=== PATIENT | male | born 1960 | race Caucasian/White ===

== ENCOUNTER 2017-07-16 17:02 | Observation (INO) | payer BC ==
[2017-07-16] MEDS ORDERED: ASPIRIN 81 MG TABLET, CHEWABLE PO ONE (17:27)
--- NOTE | 2017-07-16 17:28 | ER Document Report ---
ED Medical Screen (RME) - General Chief Complaint: Chest Pain Stated Complaint: CHEST PAIN Time Seen by Provider: 07/16/17 17:27 TRAVEL OUTSIDE OF THE [place] IN LAST 30 DAYS: No - HPI Notes: 07/16/17 17:28 Right-sided chest pain ongoing for 2 weeks. Reading Coach is Dr. Hernandez in [place]. Past Medical History Renal/ Medical History: Denies: Hx Peritoneal Dialysis Review of Systems - Review of Systems Cardiovascular: Chest pain Physical Exam - Vital signs Vitals: Temp Pulse Resp BP Pulse Ox 97.9 F 71 20 166/96 H 98 07/16/17 17:09 07/16/17 17:09 07/16/17 17:09 07/16/17 17:09 07/16/17 17:09 - Respiratory Respiratory status: No respiratory distress Chest status: Nontender Breath sounds: Normal Chest palpation: Normal Course - Vital Signs Vital signs: Temp Pulse Resp BP Pulse Ox 97.9 F 71 20 166/96 H 98 07/16/17 17:09 07/16/17 17:09 07/16/17 17:09 07/16/17 17:09 07/16/17 17:09
[2017-07-16 17:57] LABS: ABSOLUTE EOSINOPHILS # (AUTO) 0.2 10^3/uL (0.0-0.6); ABSOLUTE LYMPHOCYTES (AUTO) 1.5 10^3/uL (0.5-4.7); ABSOLUTE MONOCYTES (AUTO) 0.5 10^3/uL (0.1-1.4); ABSOLUTE NEUT (AUTO) 4.6 10^3/uL (1.7-8.2); BASOPHILS % (AUTO) 0.4 % (0-2); EOSINOPHILS % (AUTO) 2.5 % (0-6); HEMATOCRIT 42.6 % (37.9-51.0); HEMOGLOBIN 14.2 g/dL (13.5-17.0); MEAN CORPUSCULAR HEMOGLOBIN 32.6 pg (27.0-33.4); MEAN CORPUSCULAR HGB CONC 33.4 g/dL (32.0-36.0); MEAN CORPUSCULAR VOLUME 98 fl (80-97); RED BLOOD COUNT 4.36 10^6/uL (4.35-5.55); RED CELL DISTRIBUTION WIDTH 13.2 % (11.5-14.0); SEGMENTED NEUTROPHILS % (AUTO) 68.1 % (42-78); WHITE BLOOD COUNT 6.7 10^3/uL (4.0-10.5)
--- NOTE | 2017-07-16 18:03 | RADIOLOGY REPORT (SQ) ---
EXAM DESCRIPTION: CHEST PA/LAT COMPLETED DATE/TIME: 07/16/2017 5:49 pm REASON FOR STUDY: cp COMPARISON: None. EXAM PARAMETERS: NUMBER OF VIEWS: two views TECHNIQUE: Digital Frontal and Lateral radiographic views of the chest acquired. RADIATION DOSE: NA LIMITATIONS: none FINDINGS: LUNGS AND PLEURA: No opacities, masses or pneumothorax. No pleural effusion. MEDIASTINUM AND HILAR STRUCTURES: No masses or contour abnormalities. HEART AND VASCULAR STRUCTURES: Heart normal size. No evidence for failure. BONES: No acute findings. HARDWARE: None in the chest. OTHER: No other significant finding. IMPRESSION: NO SIGNIFICANT RADIOGRAPHIC FINDING IN THE CHEST. TECHNICAL DOCUMENTATION: JOB ID: [id number] [employer] ([place])- All Rights Reserved
[2017-07-16 18:18] LABS: ALANINE AMINOTRANSFERASE 32 U/L (21-72); ALBUMIN 3.9 g/dL (3.5-5.0); ALKALINE PHOSPHATASE 89 U/L (38-126); ANION GAP 11 (5-19); ASPARTATE AMINO TRANSFERASE 27 U/L (17-59); BILIRUBIN,DIRECT 0.4 mg/dL (0.0-0.4); BILIRUBIN,TOTAL 0.4 mg/dL (0.2-1.3); BLOOD UREA NITROGEN 10 mg/dL (7-20); CALCIUM 9.2 mg/dL (8.4-10.2); CARBON DIOXIDE 27 mmol/L (22-30); CHLORIDE 105 mmol/L (98-107); CREATINE KINASE 38 U/L (55-170); CREATININE RESULT 0.85 mg/dL (0.52-1.25); GLUCOSE 85 mg/dL (75-110); POTASSIUM 4.6 mmol/L (3.6-5.0); SODIUM 142.7 mmol/L (137-145); TOTAL PROTEIN 6.6 g/dL (6.3-8.2)
[2017-07-16 18:29] LABS: CREATINE KINASE MB 0.61 ng/mL (<4.55)
[2017-07-16 18:31] LABS: TROPONIN I < 0.012 ng/mL
[2017-07-16 19:18] LABS: PROTHROMBIN TIME 12.4 SEC (11.4-15.4)
--- NOTE | 2017-07-16 19:34 | ER Document Report ---
ED General - General Chief Complaint: Chest Pain Stated Complaint: CHEST PAIN Time Seen by Provider: 07/16/17 17:27 Notes: Patient is a 57-year-old male with a past medical history of known coronary artery disease who presents with 2 weeks of intermittent right-sided chest pressure radiating into his right arm with associated diaphoresis. Patient states that these episodes do come on abruptly and can occur with exertion or at rest. The pain is described as a constant, pressure-like sensation in the right chest with an associated numbness, heaviness of the right upper extremity. States this does not feel as severe as when he has had MIs in the past. His pain is resolved when he takes nitroglycerin. 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 His last provocative test was in 2009 and his last cardiac catheterization was in 2008. He is chest pain-free at this time. He denies any associated shortness of breath, pleuritic pain, or abdominal pain. TRAVEL OUTSIDE OF THE [place] IN LAST 30 DAYS: No - Related Data Allergies/Adverse Reactions: Penicillins Allergy (Verified 07/16/17 17:30) statins Allergy (Uncoded 07/16/17 17:30) Home Medications: Current Home Medications Acetaminophen/Diphenhydramine [Tylenol Pm Ex-Strength Caplet] 1 each PO QHS 12/01 [History] Clopidogrel Bisulfate [Plavix 75 mg Tablet] 75 mg PO DAILY 07/16/17 [History] Folic Acid/Multivit-Minerals [One-A-Day Men Vitacraves Gummy] 200 mcg PO DAILY 07/16/17 [History] Isosorbide Mononitrate [Isosorbide Mononitrate ER] 30 mg PO DAILY 07/16/17 [ History] Loratadine [Claritin 10 mg Tablet] 10 mg PO DAILY 07/16/17 [History] Nitroglycerin [Nitrostat 0.4 mg (1/150 Gr) Tabs 25/Bottle] 1 tab SL Q5MP PRN 12/01 [History] Omeprazole 40 mg PO BID 07/16/17 [History] Past Medical History - General Information source: Patient - Social History Smoking Status: Never Smoker Chew tobacco use (# tins/day): No Frequency of alcohol use: Occasional Drug Abuse: None Lives with: Spouse/Significant other Family History: Reviewed & Not Pertinent Patient has suicidal ideation: No Patient has homicidal ideation: No - Past Medical History Cardiac Medical History: Reports: Hx Heart Attack, Hx Hypertension Renal/ Medical History: Denies: Hx Peritoneal Dialysis Past Surgical History: Reports: Hx Abdominal Surgery - gastric bypass, Hx Cardiac Catheterization - stent x4 Review of Systems - Review of Systems Notes: Constitutional: Negative for fever. HENT: Negative for sore throat. Eyes: Negative for visual changes. Cardiovascular: Positive for chest pain. Respiratory: Negative for shortness of breath. Gastrointestinal: Negative for abdominal pain, vomiting or diarrhea. Genitourinary: Negative for dysuria. Musculoskeletal: Negative for back pain. Skin: Negative for rash. Neurological: Negative for headaches, weakness or numbness. 10 point ROS negative except as marked above and in HPI. Physical Exam - Vital signs Vitals: Temp Pulse Resp BP Pulse Ox 97.9 F 71 20 166/96 H 98 07/16/17 17:09 07/16/17 17:09 07/16/17 17:09 07/16/17 17:09 07/16/17 17:09 Interpretation: Hypertensive Notes: PHYSICAL EXAMINATION: GENERAL: Well-appearing, well-nourished and in no acute distress. HEAD: Atraumatic, normocephalic. EYES: Pupils equal round and reactive to light, extraocular movements intact, sclera anicteric, conjunctiva are normal. ENT: nares patent, oropharynx clear without exudates. Moist mucous membranes. NECK: Normal range of motion, supple without lymphadenopathy LUNGS: Breath sounds clear to auscultation bilaterally and equal. No wheezes rales or rhonchi. HEART: Regular rate and rhythm without murmurs ABDOMEN: Soft, nontender, normoactive bowel sounds. No guarding, no rebound. No masses appreciated. EXTREMITIES: Normal range of motion, no pitting or edema. No cyanosis. NEUROLOGICAL: No focal neurological deficits. Moves all extremities spontaneously and on command. PSYCH: Normal mood, normal affect. SKIN: Warm, Dry, normal turgor, no rashes or lesions noted. Course - Re-evaluation Re-evalutation: 07/16/17 19:33 Patient presents with a clinical history that is worrisome for possible unstable angina. He is having recurrent right-sided chest pressure radiating to the right extremity with associated diaphoresis worrisome that this is cardiac in origin. Fortunately, his EKG here is without ischemic changes and his initial troponin is normal. He is chest pain-free at time of my assessment. Wells score is 0 and his clinical history is not consistent with an acute pulmonary embolus. Chest x-ray is clear without evidence of a pneumothorax or widened mediastinum and I do not suspect an acute aortic dissection. Patient is high risk, will require inpatient stress testing versus transfer for cardiac catheterization. I have discussed with Dr. Sher Santana who is requesting to speak to cardiology first to establish the most appropriate measure for this patient. 07/16/17 19:43 The child daycare worker on-call Dr. Miranda is agreeable to admit the patient and stress him here. At this time will discharge with return precautions and follow-up recommendations. Verbal discharge instructions given a the bedside and opportunity for questions given. Medication warnings reviewed. Patient is in agreement with this plan and has verbalized understanding of return precautions and the need for primary care follow-up in the next 24-72 hours. - Vital Signs Vital signs: Temp Pulse Resp BP Pulse Ox 98.3 F 53 L 18 166/105 H 95 07/16/17 22:58 07/17/17 02:53 07/16/17 22:58 07/16/17 22:58 07/16/17 22:58 - Laboratory Result Diagrams: 07/16/17 17:44 07/16/17 17:44 Laboratory results interpreted by me: 07/16/17 07/16/17 17:44 17:44 MCV 98 H Creatine Kinase 38 L - Diagnostic Test Radiology reviewed: Image reviewed, Reports reviewed Radiology results interpreted by me: 07/16/17 19:45 Chest x-ray: No acute infiltrate or pneumothorax - EKG Interpretation by Me Additional EKG results interpreted by me: 07/16/17 19:45 Normal sinus rhythm. Rate 71. No ST elevations or depressions. PACs present. QTC is 444. Discharge - Discharge Clinical Impression: Chest pain Qualifiers: Chest pain type: unspecified Qualified Code(s): R07.9 - Chest pain, unspecified Condition: Fair Disposition: ADMITTED OBSERVATION Admitting Provider: Isidra Santana Unit Admitted: Telemetry
[2017-07-16] MEDS ORDERED: NITROGLYCERIN 0.4 MG/TAB 25 TAB/BOTTLE SL PRN (19:45)
[2017-07-16] MEDS ORDERED: LACTULOSE SYRUP 20 GM/30 ML UDCUP PO ONE (20:15)
[2017-07-16] MEDS ORDERED: ISOSORBIDE MONONITRATE 30 MG TAB.ER.24H PO ONE (20:30)
[2017-07-16] MEDS ORDERED: CLOPIDOGREL BISULFATE 300 MG TABLET PO ONE (21:30)
[2017-07-16] MEDS ORDERED: ATORVASTATIN CALCIUM 80 MG TABLET PO SCH (22:00)
--- NOTE | 2017-07-16 22:05 | EKG REPORT ---
SEVERITY:- OTHERWISE NORMAL ECG - SINUS RHYTHM ATRIAL PREMATURE COMPLEX BORDERLINE LEFT AXIS DEVIATION : Confirmed by: Lang Miranda 16-Jul-2017 22:04:59
[2017-07-16] MEDS: LANSOPRAZOLE 30 MG TAB.RAP.DR PO SCH (22:12)
[2017-07-16] MEDS: METOPROLOL SUCCINATE 25 MG TAB.SR.24H PO SCH (22:13)
[2017-07-16] MEDS ORDERED: ENALAPRILAT DIHYDRATE INJ/PF 1.25 MG/1 ML SDV IV ONE (23:45)
[2017-07-17 00:19] LABS: TROPONIN I < 0.012 ng/mL
--- NOTE | 2017-07-17 05:32 | PDOC H&P ---
History of Present Illness Admission Date/PCP: 07/16/17 19:45 Patient complains of: Chest pain History of Present Illness: TODD ERAZO is a 57 year old male with a past medical history of coronary artery disease status post stent 4 approximately 11 years ago, morbid obesity status post gastric bypass and hypertension. Patient been in his usual state of health until approximately 2 weeks ago has noted intermittent episodes of dull 2 out of 5 retrosternal chest pain associated with diaphoresis, worsened with exertion alleviated by rest and nitroglycerin. His episodes of pain that become increasingly frequent and intense prompting him to seek evaluation emergency room. She denies any recent change of medication. In the emergency room his pain is present and completely resolved by IV Lopressor and Nitropaste. He is referred to the hospitalist for admission for an otherwise unremarkable workup. Past Medical History Cardiac Medical History: Reports: Myocardial Infarction, Hypertension Psychiatric Medical History: Denies: Depression Past Surgical History Past Surgical History: Reports: Cardiac Catheterization - stent x4, Gastric Bypass Surgery Social History Information Source: Patient Lives with: Spouse/Significant other Smoking Status: Never Smoker Frequency of Alcohol Use: None Hx Recreational Drug Use: No Drugs: None Hx Prescription Drug Abuse: No - Advance Directive Resuscitation Status: Full Code Family History Family History: CAD Parental Family History Reviewed: Yes Children Family History Reviewed: Yes Sibling(s) Family History Reviewed.: Yes Medication/Allergy Home Medications: Acetaminophen/Diphenhydramine [Tylenol Pm Ex-Strength Caplet] 1 each PO QHS 12/01 Clopidogrel Bisulfate [Plavix 75 mg Tablet] 75 mg PO DAILY 07/16/17 Folic Acid/Multivit-Minerals [One-A-Day Men Vitacraves Gummy] 200 mcg PO DAILY 07/16/17 Isosorbide Mononitrate [Isosorbide Mononitrate ER] 30 mg PO DAILY 07/16/17 Loratadine [Claritin 10 mg Tablet] 10 mg PO DAILY 07/16/17 Nitroglycerin [Nitrostat 0.4 mg (1/150 Gr) Tabs 25/Bottle] 1 tab SL Q5MP PRN 12/01 Omeprazole 40 mg PO BID 07/16/17 Allergies/Adverse Reactions: Penicillins Allergy (Verified 07/16/17 17:30) statins Allergy (Uncoded 07/16/17 17:30) Review of Systems Constitutional: ABSENT: chills, fever(s), headache(s), weight gain, weight loss Eyes: ABSENT: visual disturbances Ears: ABSENT: hearing changes Cardiovascular: ABSENT: chest pain, dyspnea on exertion, edema, orthropnea, palpitations Respiratory: ABSENT: cough, hemoptysis Gastrointestinal: ABSENT: abdominal pain, constipation, diarrhea, hematemesis, hematochezia, nausea, vomiting Genitourinary: ABSENT: dysuria, hematuria Musculoskeletal: ABSENT: joint swelling Integumentary: ABSENT: rash, wounds Neurological: ABSENT: abnormal gait, abnormal speech, confusion, dizziness, focal weakness, syncope Psychiatric: ABSENT: anxiety, depression, homidical ideation, suicidal ideation Endocrine: ABSENT: cold intolerance, heat intolerance, polydipsia, polyuria Hematologic/Lymphatic: ABSENT: easy bleeding, easy bruising Physical Exam Vital Signs: Temp Pulse Resp BP Pulse Ox 98.3 F 53 L 18 166/105 H 95 07/16/17 22:58 07/17/17 02:53 07/16/17 22:58 07/16/17 22:58 07/16/17 22:58 Intake & Output 07/15/17 07/16/17 07/17/17 11:59 11:59 11:59 Intake Total 300 Output Total 300 Balance 0 Weight 114.15 kg General appearance: PRESENT: no acute distress, well-developed, well-nourished Head exam: PRESENT: atraumatic, normocephalic Eye exam: PRESENT: conjunctiva pink, EOMI, PERRLA. ABSENT: scleral icterus Ear exam: PRESENT: normal external ear exam Mouth exam: PRESENT: moist, tongue midline Neck exam: ABSENT: carotid bruit, JVD, lymphadenopathy, thyromegaly Respiratory exam: PRESENT: clear to auscultation chandana. ABSENT: rales, rhonchi, wheezes Cardiovascular exam: PRESENT: RRR, systolic murmur. ABSENT: diastolic murmur, rubs Pulses: PRESENT: normal dorsalis pedis pul Vascular exam: PRESENT: normal capillary refill GI/Abdominal exam: PRESENT: normal bowel sounds, soft. ABSENT: distended, guarding, mass, organolmegaly, rebound, tenderness Rectal exam: PRESENT: deferred Extremities exam: PRESENT: full ROM. ABSENT: calf tenderness, clubbing, pedal edema Neurological exam: PRESENT: alert, awake, oriented to person, oriented to place , oriented to time, oriented to situation, CN II-XII grossly intact. ABSENT: motor sensory deficit Psychiatric exam: PRESENT: appropriate affect, normal mood. ABSENT: homicidal ideation, suicidal ideation Skin exam: PRESENT: dry, intact, warm. ABSENT: cyanosis, rash Results Laboratory Results: 07/16/17 23:42 CK-MB (CK-2) 0.50 Troponin I < 0.012 Impressions: Chest X-Ray 07/16/17 17:28 IMPRESSION: NO SIGNIFICANT RADIOGRAPHIC FINDING IN THE CHEST. Assessment & Plan - Diagnosis (1) Coronary artery disease Is this a current diagnosis for this admission?: Yes Plan: History of stent 4, current symptoms strongly suggest unstable angina, cardiology consulted (2) Hypertension Is this a current diagnosis for this admission?: Yes Plan: Patient intolerant of GRACIELA inhibitors secondary to cough and subsequent discontinuation. Nitroglycerin and beta-evie as needed (3) Chest pain Qualifiers: Chest pain type: unspecified Qualified Code(s): R07.9 - Chest pain, unspecified Is this a current diagnosis for this admission?: Yes Plan: Atypical chest pain suggestive of unstable angina serial cardiac enzymes, treadmill stress ordered. - Time Time Spent: 30 to 50 Minutes
[2017-07-17 06:11] LABS: CHOLESTEROL 181.52 mg/dL (0-200); CREATINE KINASE 29 U/L (55-170); Direct HDL 47 mg/dL (>40); TRIGLYCERIDES 181 mg/dL (<150)
[2017-07-17 06:22] LABS: CREATINE KINASE MB 0.49 ng/mL (<4.55); DIRECT LDL 118 mg/dL (<100); VLDL CHOLESTEROL 36.2 mg/dL (10-31)
[2017-07-17 06:23] LABS: TROPONIN I < 0.012 ng/mL
[2017-07-17] MEDS ORDERED: [UNRECOGNIZED DRUG - OTHER] PO SCH (10:00)
[2017-07-17] MEDS ORDERED: FOLIC ACID PO SCH (10:00)
[2017-07-17] MEDS ORDERED: CLOPIDOGREL BISULFATE 300 MG TABLET PO SCH (10:00)
[2017-07-17] MEDS ORDERED: ISOSORBIDE MONONITRATE 30 MG TAB.ER.24H PO SCH (10:00)
[2017-07-17] MEDS ORDERED: RAMIPRIL 2.5 MG CAPSULE PO SCH (10:00)
[2017-07-17] MEDS ORDERED: LORATADINE 10 MG TABLET PO SCH (10:00)
[2017-07-17] MEDS ORDERED: MULTIVIT MINERALS PO SCH (10:00)
[2017-07-17] MEDS ORDERED: DOCUSATE SODIUM 100 MG CAPSULE PO SCH (10:00)
[2017-07-17] MEDS ORDERED: MULTIVITAMIN TABLET PO SCH ×2 (10:00)
[2017-07-17] MEDS ORDERED: CLOPIDOGREL BISULFATE 75 MG TABLET PO SCH (10:00)
[2017-07-17] MEDS ORDERED: AMINOPHYLLINE INJ/PF 250 MG/10 ML SDV IV ONE (10:24)
[2017-07-17] MEDS ORDERED: ADENOSINE INJ 60 MG/20 ML VIAL IV ONE (10:24)
[2017-07-17] MEDS ORDERED: REGADENOSON INJ 0.4 MG/5 ML DISP.SYRIN IV ONE (10:26)
[2017-07-17] MEDS: METOPROLOL SUCCINATE 25 MG TAB.SR.24H PO SCH (10:42)
[2017-07-17] MEDS: LANSOPRAZOLE 30 MG TAB.RAP.DR PO SCH (10:43)
--- NOTE | 2017-07-17 11:55 | DRAGON STRESS TEST REPORT ---
INTRAVENOUS LEXISCAN CARDIOLITE STRESS TEST USING SINGLE PHOTON EMMISION COMPUTERIZED TOMOGRAPHIC. DATE OF PROCEDURE: July 17, 2017 INDICATION : Chest pain CARDIAC RISK FACTORS: Known CAD, hypertension, dyslipidemia, history of prior stents RESTING EKG: Sinus rhythm, no baseline ST-T wave changes are noted. STRESS EKG: No significant changes noted with LexiScan bolus REASON FOR TERMINATION: Protocol. PROCEDURE REPORT: Baseline heart rate 57 beats per minute with blood pressure of 143/88. Patient had no significant complaints. Heart rate at 2 minutes post bolus 85 with a blood pressure of 143/88. 3 minutes post bolus heart rate 77 with blood pressure of 145/85. No significant EKG changes were noted. Patient had no significant complaints during the procedure or postprocedure. Patient injected with Aminophyllin 75 mg at 3 minutes or later after Lexiscan bolus. CONCLUSIONS: Normal EKG and hemodynamic response to IV LexiScan. NUCLEAR DATA: At rest the patient was given 15.2 millicuries of technetium 99 sestamibi injected intravenously. As per protocol rest gated SPECT images were obtained. Subsequently the patient was given intravenous LexiScan at a dose of 0.4 mg in 5 mL intravenously, followed by flush with normal saline. Subsequently the stress dose of 46.3 millicuries of technetium 99 sestamibi was injected intravenously. As per protocol stress gated images were obtained. NUCLEAR INTERPRETATION: Both raw and processed data were used for interpretation. Visual, qualitative, computer-generated quantitative data was used. There was good myocardial uptake of technetium compound. Motion artifact and soft tissue attenuations were noted. Increased visceral uptake was noted. No definitive areas of transient perfusion defect noted. No definitive areas of fixed perfusion defect or scars noted. EKG gated imaging showed LV EF at 43 %, rest and stress gated EF similar visually. T. I D. ratio was 1.10. Lung heart ratio noted to be within normal limits 0.31. No significant extracardiac and abnormal radiotracer activities were noted. RV free wall uptake was noted to be mildly increased. IMPRESSION: Also refer to comments under nuclear interpretation. Also test results needs to be interpreted in the context of pretest probability. 1. There is no definitive scintigraphic evidence of LexiScan induced myocardial ischemia. 2. There is no definitive scintigraphic evidence of myocardial infarction/scar. 3. EKG gated imaging shows left ventricular ejection fraction of approximately 43 %. 4. Clinical correlation requested as occasionally single vessel disease or balanced ischemia could be missed. In approximately 10% of the cases Lexiscan may not cause adequate vasodilatory stress. RECOMMENDATIONS: Aggressive risk factor modification, medical therapy. Clinical correlation with echocardiogram derived ejection fraction. Inability to exercise by itself can lead to increased cardiovascular event risks. Consider cardiology consultation and or follow-up if clinically indicated. I AM AVAILABLE FOR CARDIOLOGY CONSULTATION AND FOLLOWUP IF REQUESTED BY PMD Lang Miranda M.D., [facility] [employer] motor vehicle field representative, Board certified in cardiovascular diseases, Nuclear cardiology, Echocardiography Cardiac CT and cardiac MRI Ph. [phone] [facility]
--- NOTE | 2017-07-17 12:09 | PDOC CONSULTATION ---
Consultation Consult Date: 07/16/17 Attending physician:: DAWIT DEE Consult reason:: chest pain History of Present Illness Admission Date/PCP: 07/16/17 19:45 Patient complains of: Chest pain History of Present Illness: TODD ERAZO is a 57 year old male with a past medical history of coronary artery disease status post stent 4 approximately 11 years ago, morbid obesity status post gastric bypass and hypertension. Patient been in his usual state of health until approximately 2 weeks ago has noted intermittent episodes of dull 2 out of 5 retrosternal chest pain associated with diaphoresis, worsened with exertion alleviated by rest and nitroglycerin. His episodes of pain that become increasingly frequent and intense prompting him to seek evaluation emergency room. Patient denies any recent change of medication. In the emergency room his pain is present and completely resolved by IV Lopressor and Nitropaste. Patient is subsequently admitted. His initial cardiac enzymes and EKG were unremarkable. I was asked to help with management of underlying CAD.. Past Medical History Cardiac Medical History: Reports: Myocardial Infarction, Hypertension Past Surgical History Past Surgical History: Reports: Cardiac Catheterization - stent x4 Social History Information Source: Patient Smoking Status: Never Smoker - Advance Directive Resuscitation Status: Full Code Surrogate healthcare decision maker:: Patient's significant other is surrogate decision maker. Family History Family History: CAD Parental Family History Reviewed: Yes Children Family History Reviewed: Yes Sibling(s) Family History Reviewed.: Yes - Patient's father had coronary artery disease. Medication/Allergy Home Medications: Acetaminophen/Diphenhydramine [Tylenol Pm Ex-Strength Caplet] 1 each PO QHS 12/01 Clopidogrel Bisulfate [Plavix 75 mg Tablet] 75 mg PO DAILY 07/16/17 Folic Acid/Multivit-Minerals [One-A-Day Men Vitacraves Gummy] 200 mcg PO DAILY 07/16/17 Isosorbide Mononitrate [Isosorbide Mononitrate ER] 30 mg PO DAILY 07/16/17 Loratadine [Claritin 10 mg Tablet] 10 mg PO DAILY 07/16/17 Nitroglycerin [Nitrostat 0.4 mg (1/150 Gr) Tabs 25/Bottle] 1 tab SL Q5MP PRN 12/01 Omeprazole 40 mg PO BID 07/16/17 Allergies/Adverse Reactions: Penicillins Allergy (Verified 07/16/17 17:30) statins Allergy (Uncoded 07/16/17 17:30) Review of Systems Review of Systems: Please see history of present illness and past medical history as wall. Constitutional: No fever or chills reported. Head : No recent chronic headaches, recent head injury. Eyes: No recent eye pain, diplopia, redness, discharge, acute visual changes. Ears: No recent chronic ear pain, acute hearing loss, ear discharge. Oral cavity: No recent ulcerations, bleeding, oral cavity discomfort. Neck: No recent acute neck pain reported. Hematologic: No recent easy bruising or bleeding or hematologic malignancy reported. Lymphatic: No recent lymphatic malignancy, chronic lymphadenopathy reported yet Cardiovascular system review: See history of present illness. Respiratory system review: No recent chronic cough, hemoptysis, blood clots in the lungs reported. Mild Shortness of breath on exertion Gastrointestinal system review: Negative for any recent acute or chronic abdominal pain, hematemesis, melena, recent change in bowel habits. Genitourinary system review: No recent acute or chronic hematuria, flank pain, UTI etc. reported. Skin system review: Negative for any recent abnormal bruising, no rash, no pruritus reported. Neurologic: No prior history of strokes, mini strokes, seizure disorder. Psychologic: No history of major psychosis or major depression reported. Musculoskeletal: Minor aches and pains reported. No acute joint swelling reported. Endocrine: No recent polyuria, polydipsia, recent heat or cold intolerance. Patient does give history of loud snoring. Physical Exam Vital Signs: Temp Pulse Resp BP Pulse Ox 97.9 F 71 15 164/108 H 99 07/16/17 17:09 07/16/17 17:09 07/16/17 19:11 07/16/17 19:11 07/16/17 19:11 Exam: GENERAL: well-nourished and in no acute distress. Alert and oriented x3 HEAD: Atraumatic, normocephalic. EYES: Pupils equal round and reactive to light, extraocular movements intact, sclera anicteric, conjunctiva are normal. ENT: TMs normal, nares patent, oropharynx clear without exudates. Moist mucous membranes. No oral ulcerations or bleeding gums noted NECK: supple without lymphadenopathy. Trachea is central. No cervical or axillary lymphadenopathy noted. Carotids are 2+, JVD WNL LUNGS: Respiration seems nonlabored, no significant accessory muscle action noted. Breath sounds clear to auscultation bilaterally and equal noted. No wheezes rales or rhonchi noted. No significant dullness noted on percussion. CHEST: Palpation of the chest wall shows right-sided chest wall tenderness. No other significant abnormalities noted. HEART: [place] [employer], No PSH, 1/6 CONCEPCION aortic area, 1/6 zuñiga systolic murmur mitral area, no rubs, no gallops. ABDOMEN: Soft, no significant tenderness appreciated, normoactive bowel sounds. No guarding, no rebound. No rigidity noted . No masses appreciated. EXTREMITIES: Pedal pulses are 1-2+, no calf tenderness noted. No clubbing or cyanosis.trace to 1+ pedal edema noted NEUROLOGICAL: Focused neurological exam showed no significant neurologic deficit. Normal speech, no focal weakness appreciated. PSYCH: Normal mood, normal affect. Judgment and insight within normal limits. SKIN: No significant ecchymosis, rash, ulcerations or signs of pruritus noted. MUSCULOSKELETAL EXAM: No significant joint swelling noted. Results EKG Comments: Sinus rhythm, no acute ST-T wave changes noted. Impressions: Chest X-Ray 07/16/17 17:28 IMPRESSION: NO SIGNIFICANT RADIOGRAPHIC FINDING IN THE CHEST. Assessment & Plan - Diagnosis (1) Chest pain Qualifiers: Chest pain type: unspecified Qualified Code(s): R07.9 - Chest pain, unspecified Is this a current diagnosis for this admission?: Yes (2) Coronary artery disease Is this a current diagnosis for this admission?: Yes (3) Hypertension Is this a current diagnosis for this admission?: Yes (4) Dyslipidemia Is this a current diagnosis for this admission?: Yes (5) Obesity (BMI 30.0-34.9) Is this a current diagnosis for this admission?: Yes (6) Sleep disorder Is this a current diagnosis for this admission?: Yes - Notes Notes: Chest pain: Patient has some typical and atypical features of chest pain. Cardiac enzymes so far has been negative. Electrocardiogram did not show any definitive ST segment changes. Multiple differential diagnoses exist in this patient. In descending order of probability this includes underlying coronary artery disease, gastroesophageal reflux, musculoskeletal pain, referred pain from elsewhere, anxiety panic disorder etc.Patient has significant cardiac risk factors, which indicates that there is a intermediate probability of chest discomfort coming from underlying CAD. Feel that it would need to be evaluated further. Discussed evaluation to assess this. In this regard risk benefits of nuclear stress test and other alternative processes were discussed in detail. The patient prefers to undergo nuclear stress test. The small risk of radiation , myocardial infarction, , cardiac arrhythmias, respiratory distress etc. were discussed. Patient understood the risks and gave informed consent. Nuclear stress test was therefore scheduled. Patient questions were answered. CAD: Patient has known history of CAD. Currently admitted with chest pain. Now chest pain-free. There were no EKG changes and enzymes are negative. Patient will benefit from a nuclear stress test. Patient to be treated with dualantiplatelet therapy, high potency statin therapy, beta blockers, angiotensin receptor evie, GRACIELA inhibitors et cetera. Patient advised against tobacco abuse in any form. Patient to follow healthy lifestyle, low- cholesterol diet et cetera. Hypertension: Reasonably well controlled. Blood pressure goal in this patient is 135/85 or less. This was discussed with the patient. Currently blood pressure under reasonable control. Better medication for this patient are GRACIELA inhibitor/ARB/beta evie etc. discussed side effects of uncontrolled hypertension and also severe hypotension. Hyperlipidemia: LDL goal is less than 70. Recommend statin therapy at least intermediate or high dose, of high potency status. Periodic lipid panel and liver panel is indicated. Patient to report any significant muscle discomfort or other side effects. Obesity: Discussed adverse effect of overweight/obesity on cardiovascular event rate, sleep apnea, diabetes and hypertension et cetera. Patient has been recommended weight loss. Patient advised in weight loss. In this regard portion control, substitution, calorie restriction and regular exercise plan discussed. Risk associated with being overweight and obesity discussed. This included both mechanical and metabolic complications. Sleep disorder breathing: Based on patient's symptoms, oropharyngeal exam, body habitus, comorbid diagnosis etc., there is high probability of underlying sleep apnea syndrome. Evaluation is recommended for sleep apnea as treatment of this condition if found is likely to benefit patient and reduce patient's future cardiovascular risk. - Time Time Spent: 30 to 50 Minutes - CODE STATUS was discussed, patient remains full code. Surrogate decision-maker unchanged. Multiple medical problems were addressed. More than 50% of the time spent coordinating care, discussing management plans with involved caregivers. Management plans discussed with involved personnels. Medical decision making was of moderate to high complexity , patient's has multiple comorbidities. Medications reviewed and adjusted accordingly: Yes
--- NOTE | 2017-07-17 14:01 | EKG REPORT ---
SEVERITY:- ABNORMAL ECG - SINUS RHYTHM NONSPECIFIC INTRAVENTRICULAR CONDUCTION DELAY : Confirmed by: Lang Miranda 17-Jul-2017 14:01:14
[2017-07-17 14:30] VITALS: BP 132/82
--- NOTE | 2017-07-17 15:09 | PDOC DISCHARGE SUMMARY ---
General - Admit/Disc Date/PCP Admission Date/Primary Care Provider: 07/16/17 19:45 Discharge Date: 07/17/17 - Discharge Diagnosis (1) GERD (gastroesophageal reflux disease) Is this a current diagnosis for this admission?: Yes (2) Chest pain Is this a current diagnosis for this admission?: Yes (3) Coronary artery disease Is this a current diagnosis for this admission?: Yes (4) Dyslipidemia Is this a current diagnosis for this admission?: Yes (5) Hypertension Is this a current diagnosis for this admission?: Yes (6) Obesity (BMI 30.0-34.9) Is this a current diagnosis for this admission?: Yes (7) Status post gastric bypass for obesity Is this a current diagnosis for this admission?: Yes - Additional Information Resuscitation Status: Full Code Discharge Diet: Cardiac, Diabetic Discharge Activity: Activity As Tolerated, Walk Frequently, Weigh Daily Home Medications: Acetaminophen/Diphenhydramine [Tylenol Pm Ex-Strength Caplet] 1 each PO QHS 12/01 Clopidogrel Bisulfate [Plavix 75 mg Tablet] 75 mg PO DAILY 07/16/17 Folic Acid/Multivit-Minerals [One-A-Day Men Vitacraves Gummy] 200 mcg PO DAILY 07/16/17 Isosorbide Mononitrate [Isosorbide Mononitrate ER] 30 mg PO DAILY 07/16/17 Loratadine [Claritin 10 mg Tablet] 10 mg PO DAILY 07/16/17 Nitroglycerin [Nitrostat 0.4 mg (1/150 Gr) Tabs 25/Bottle] 1 tab SL Q5MP PRN 12/01 Omeprazole 40 mg PO BID 07/16/17 Metoprolol Succinate [Toprol Xl 25 mg Tab.sr] 25 mg PO Q12 #60 tab.sr.24h Ramipril [Altace 2.5 mg Capsule] 2.5 mg PO DAILY #30 capsule 07/17/17 History of Present Illness History of Present Illness: See H&P for full HPI Hospital Course Hospital Course: TODD ERAZO is a 57 year old male with a past medical history of coronary artery disease status post stent 4 approximately 11 years ago, morbid obesity status post gastric bypass and hypertension. Patient been in his usual state of health until approximately 2 weeks ago has noted intermittent episodes of dull 2 out of 5 retrosternal chest pain associated with diaphoresis, worsened with exertion alleviated by rest and nitroglycerin. His episodes of pain that become increasingly frequent and intense prompting him to seek evaluation emergency room. She denies any recent change of medication. In the emergency room his pain is present and completely resolved by IV Lopressor and Nitropaste. He is referred to the hospitalist for admission for an otherwise unremarkable workup. Patient underwent serial cardiac enzymes which were negative 3. Patient underwent nuclear stress test which was also negative. Patient is advised to follow-up with his regular medical or surgical instrument maker for evaluation of his murmur and also if he has any ongoing pain for repeat cardiac catheterization. I discussed his care at great length with his who reports to me the patient is noncompliant with his gastric bypass diet and that he often eats to the point of vomiting. I discussed this with him and encouraged him to return to his regular diet and to return to his GI surgeon to discuss any difficulties that he may be having. I have also encouraged him to be compliant with his PPI. I have advised him to stop drinking alcohol as well. Physical Exam Vital Signs: Temp Pulse Resp BP Pulse Ox 98.2 F 69 20 132/82 H 97 07/17/17 14:30 07/17/17 14:30 07/17/17 14:30 07/17/17 14:30 07/17/17 14:30 Intake & Output 07/16/17 07/17/17 07/18/17 06:59 06:59 06:59 Intake Total 302 480 Output Total 300 350 Balance 2 130 Weight 114.15 kg Exam: General: Awake alert and oriented x3, no acute respiratory distress HEENT: AT/NC, PERRL, EOMI, oropharynx is moist, pink, no scleral icterus, no conjunctival injection Neck: No JVD, trachea midline Chest: Clear to auscultation bilaterally, no wheezes rhonchi or rales CV: Regular rate and rhythm, normal S1 and S2, no murmur, rub, or gallop Abdomen: Soft, nontender to palpation, nondistended, active bowel sounds; no rebound, rigidity, or guarding Extremities: No cyanosis, clubbing or edema Neuro: Cranial nerves II through XII are grossly intact without focal deficits; awake alert and oriented x3 Psych: Normal mood and affect Results Laboratory Results: 07/17/17 05:43 Triglycerides 181 H Cholesterol 181.52 LDL Cholesterol Direct 118 H VLDL Cholesterol 36.2 H HDL Cholesterol 47 07/16/17 07/17/17 07/17/17 23:42 05:43 05:43 Creatine Kinase 29 L CK-MB (CK-2) 0.50 0.49 Troponin I < 0.012 < 0.012 Impressions: Chest X-Ray 07/16/17 17:28 IMPRESSION: NO SIGNIFICANT RADIOGRAPHIC FINDING IN THE CHEST. Qualifiers PATEINT BEING DISCHARGED WITH ANY OF THE FOLLOWING DIAGNOSIS?: No Plan Time Spent: Greater than 30 Minutes
--- NOTE | 2017-07-17 22:51 | PDOC PROGRESS REPORT ---
Subjective Progress Note for:: 07/17/17 Subjective:: Patient seems to be doing better. There has been no recurrence of chest pains. Pt is denying any chest arm or neck discomfort. Patient denying any PND, orthopnea. Patient denied any sustained palpitations, dizziness, syncope, near syncope. Patient denying any fever chills. Patient denying any other significant discomfort. Patient's fianc interviewed. Patient does have history of very loud snoring and waking up gasping for breath. He is also very fatigued and tired. Patient has daytime sleepiness. Patient claims that he is under tremendous stress because of divorce proceeding and other complications with his previous . Patient is maintaining sinus rhythm. Review of systems: Rest review of systems negative. Medications: Medications have been reviewed. Nuclear stress test procedure was explained to the patient in detail. Risks benefits were discussed and informed consent was obtained. Alternatives were discussed. Patient informed that based on risk factors, physical exam, lab data findings and symptoms there is at least intermediate probability of underlying CAD. Nuclear stress test procedure was therefore scheduled. Physical Exam Vital Signs: Temp Pulse Resp BP Pulse Ox 98.2 F 69 20 132/82 H 97 07/17/17 14:30 07/17/17 14:30 07/17/17 14:30 07/17/17 14:30 07/17/17 14:30 Intake & Output 07/16/17 07/17/17 07/18/17 06:59 06:59 06:59 Intake Total 302 480 Output Total 300 350 Balance 2 130 Weight 114.15 kg Exam: GENERAL: well-nourished and in no acute distress. Alert and oriented x3 HEAD: Atraumatic, normocephalic. EYES: Pupils equal round and reactive to light, extraocular movements intact, sclera anicteric, conjunctiva are normal. ENT: TMs normal, nares patent, oropharynx clear without exudates. Moist mucous membranes. No oral ulcerations or bleeding gums noted NECK: supple without lymphadenopathy. Trachea is central. No cervical or axillary lymphadenopathy noted. Carotids are 2+, JVD WNL LUNGS: Respiration seems nonlabored, no significant accessory muscle action noted. Breath sounds clear to auscultation bilaterally and equal noted. No wheezes rales or rhonchi noted. No significant dullness noted on percussion. CHEST: Palpation of the chest wall shows right-sided upper chest wall tenderness. No other significant abnormalities noted. HEART: [place] [employer], No PSH, 1/6 CONCEPCION aortic area, 2/6 zuñiga systolic murmur mitral area, no rubs, no gallops. ABDOMEN: Soft, no significant tenderness appreciated, normoactive bowel sounds. No guarding, no rebound. No rigidity noted . No masses appreciated. EXTREMITIES: Pedal pulses are 1-2+, no calf tenderness noted. No clubbing or cyanosis.trace to 1+ pedal edema noted NEUROLOGICAL: Focused neurological exam showed no significant neurologic deficit. Normal speech, no focal weakness appreciated. PSYCH: Normal mood, normal affect. Judgment and insight within normal limits. SKIN: No significant ecchymosis, rash, ulcerations or signs of pruritus noted. MUSCULOSKELETAL EXAM: No significant joint swelling noted. Results Laboratory Results: 07/17/17 05:43 Triglycerides 181 H Cholesterol 181.52 LDL Cholesterol Direct 118 H VLDL Cholesterol 36.2 H HDL Cholesterol 47 07/16/17 07/17/17 07/17/17 23:42 05:43 05:43 Creatine Kinase 29 L CK-MB (CK-2) 0.50 0.49 Troponin I < 0.012 < 0.012 EKG Comments: Sinus rhythm no acute ST-T wave changes noted Impressions: Chest X-Ray 07/16/17 17:28 IMPRESSION: NO SIGNIFICANT RADIOGRAPHIC FINDING IN THE CHEST. Assessment & Plan - Diagnosis (1) Chest pain Qualifiers: Chest pain type: unspecified Qualified Code(s): R07.9 - Chest pain, unspecified Is this a current diagnosis for this admission?: Yes (2) Coronary artery disease Is this a current diagnosis for this admission?: Yes (3) Hypertension Is this a current diagnosis for this admission?: Yes (4) Dyslipidemia Is this a current diagnosis for this admission?: Yes (5) Obesity (BMI 30.0-34.9) Is this a current diagnosis for this admission?: Yes (6) Sleep disorder Is this a current diagnosis for this admission?: Yes (7) Cardiac murmur Is this a current diagnosis for this admission?: Yes (8) Status post gastric bypass for obesity Is this a current diagnosis for this admission?: Yes - Notes Notes: Chest pain: Cardiac cardiac enzymes have been negative. EKG is negative. Due to significant history of prior stent, patient underwent a nuclear stress test. Nuclear stress test was negative for any pharmacologic stress-induced ischemia. EKG gated EF was noted to be somewhat low. Patient advised to pursue a 2D echo as an outpatient. Coronary artery disease: Medical management is being optimized. Patient placed on statins, aspirin, Plavix, beta-evie and GRACIELA inhibitors. Hypertension: Reasonably well controlled. Blood pressure goal in this patient is 135/85 or less. This was discussed with the patient. Currently blood pressure under reasonable control. Better medication for this patient are GRACIELA inhibitor/ARB/beta evie etc. discussed side effects of uncontrolled hypertension and also severe hypotension. Hyperlipidemia: LDL goal is less than 70. Recommend statin therapy at least intermediate or high dose, of high potency status. Periodic lipid panel and liver panel is indicated. Patient to report any significant muscle discomfort or other side effects. Discussed adverse effect of overweight/obesity on cardiovascular event rate, sleep apnea, diabetes and hypertension et cetera. Patient has been recommended weight loss. Patient advised in weight loss. In this regard portion control, substitution, calorie restriction and regular exercise plan discussed. Patient informed that I would be happy to help for outpatient management of weight loss. Risk associated with being overweight and obesity discussed. This included both mechanical and metabolic complications. Sleep disorder breathing: Based on patient's symptoms, oropharyngeal exam, body habitus, comorbid diagnosis etc., there is high probability of underlying sleep apnea syndrome. Evaluation is recommended for sleep apnea as treatment of this condition if found is likely to benefit patient and reduce patient's future cardiovascular risk. Cardiac murmur template: Patient may have mitral regurgitation. He describes a history of chronic heart murmur. To be evaluated further with a 2D echocardiogram. Status post gastric bypass surgery for obesity: Patient may have nutritional deficiencies associated with it. Have discussed further evaluation and blood work. This can be done as an outpatient. - Time Time with patient: Greater than 35 minutes - Patient was seen multiple times. Total time exceeds 40 minutes. In the morning nuclear stress test procedure, risks benefits, alternatives were discussed. Patient seen during the stress test. Patient also seen after stress test when results were discussed with the patient in detail. Patient's questions were answered. Nuclear stress test results were discussed with the patient. Patient was informed that no definitive evidence of pharmacologic stress-induced ischemia noted. No definite fixed defects were noted. Patient informed that occasionally significant single vessel disease or balanced ischemia could be missed. However based on the current study results, would recommend aggressive risk factor modification and medical therapy. It may also be worthwhile to consider evaluation or empiric management of other causes of chest pain. Should no other cause be found and if persistent in having chest pain, then cardiac catheterization should be considered. Right now, recommendations are for aggressive risk factor modification and medical management. CODE STATUS was discussed, patient remains full code. Surrogate decision-maker patient's fianc . Multiple medical problems were addressed. More than 50% of the time spent coordinating care, discussing management plans with involved caregivers. Management plans discussed with involved personnels. Medical decision making was of moderate to high complexity, patient's has multiple comorbidities. Medications reviewed and adjusted accordingly: Yes
== END 2017-07-17 15:08 | disposition home or self-care (01) ==
LOC: ER 17:02 → EH 19:45 → UNDOADMOB 20:02 → EH 20:02 → 4N 21:50
PROVIDERS: ADMIT Internal Medicine; ATTEND Internal Medicine
DX: R07.89 Other chest pain (principal); K21.9 Gastro-esophageal reflux disease without esophagitis; R07.9 Chest pain, unspecified; I25.10 Atherosclerotic heart disease of native coronary artery without angina pectoris; E78.5 Hyperlipidemia, unspecified; I10 Essential (primary) hypertension; E66.01 Morbid (severe) obesity due to excess calories; Z68.34 Body mass index [BMI] 34.0-34.9, adult; G47.9 Sleep disorder, unspecified; R01.1 Cardiac murmur, unspecified; I25.2 Old myocardial infarction; Z98.84 Bariatric surgery status; Z79.02 Long term (current) use of antithrombotics/antiplatelets; Z79.899 Other long term (current) drug therapy; Z95.5 Presence of coronary angioplasty implant and graft; Z91.11 Patient's noncompliance with dietary regimen; Z82.49 Family history of ischemic heart disease and other diseases of the circulatory system; Z63.5 Disruption of family by separation and divorce
CPT/HCPCS: 93005 ×2; 99285; 36415 ×2; 82553 ×2; 82550 ×2; 85025; 85610; 80053; 84484 ×2; 80061; 93017; 71020; 78452; 93010 ×2; G0378 ×3; A9500; J2785; J3490 ×4; J0280; Q9969; J0153

== ENCOUNTER 2018-07-21 12:53 | Emergency (ER) | payer BC ==
--- NOTE | 2018-07-21 13:22 | ER Document Report ---
ED Medical Screen (RME) - General Chief Complaint: Chest Pain Stated Complaint: CHEST PAIN Time Seen by Provider: 07/21/18 13:19 Mode of Arrival: Wheelchair Information source: Patient Notes: Patient presents complaining of midsternal chest pain that has been constant for the past week but became sharp today which prompted his visit today. Patient does complain of shortness of breath with nausea and vomiting 2 episodes today. Patient denies any cough or fever. Patient does report some lower extremity edema. Patient does have a history of recent bypass surgery in April of this year. Patient took aspirin 325 mg at home today. hx: Bypass, stents, hypertension, hyperlipidemia I have greeted and performed a rapid initial assessment of this patient. A comprehensive ED assessment and evaluation of the patient, analysis of test results and completion of the medical decision making process will be conducted by additional ED providers. TRAVEL OUTSIDE OF THE [place] IN LAST 30 DAYS: No - Related Data Allergies/Adverse Reactions: lisinopril Allergy (Verified 07/21/18 13:18) Penicillins Allergy (Verified 07/21/18 12:54) statins Allergy (Uncoded 07/21/18 12:54) Past Medical History - Past Medical History Cardiac Medical History: Reports: Hx Heart Attack, Hx Hypertension Renal/ Medical History: Denies: Hx Peritoneal Dialysis Psychiatric Medical History: Denies: Hx Depression Past Surgical History: Reports: Hx Abdominal Surgery - gastric bypass, Hx Cardiac Catheterization - stent x4, Hx Gastric Bypass Surgery Physical Exam - Cardiovascular Rhythm: Regular Heart sounds: S1 appreciated, S2 appreciated - Extremities General lower extremity: Edema - Lower extremities
[2018-07-21 14:41] LABS: ABSOLUTE BASOPHILS # (AUTO) 0.1 10^3/uL (0.0-0.2); ABSOLUTE EOSINOPHILS # (AUTO) 0.1 10^3/uL (0.0-0.6); ABSOLUTE LYMPHOCYTES (AUTO) 1.4 10^3/uL (0.5-4.7); ABSOLUTE MONOCYTES (AUTO) 0.6 10^3/uL (0.1-1.4); ABSOLUTE NEUT (AUTO) 6.1 10^3/uL (1.7-8.2); BASOPHILS % (AUTO) 1.1 % (0-2); EOSINOPHILS % (AUTO) 0.7 % (0-6); HEMATOCRIT 36.8 % (37.9-51.0); HEMOGLOBIN 12.1 g/dL (13.5-17.0); LYMPHOCYTES % (AUTO) 16.9 % (13-45); MEAN CORPUSCULAR HGB CONC 32.8 g/dL (32.0-36.0); MEAN CORPUSCULAR VOLUME 88 fl (80-97); MONOCYTES % (AUTO) 7.2 % (3-13); PLATELET COUNT 334 10^3/uL (150-450); RED BLOOD COUNT 4.16 10^6/uL (4.35-5.55); SEGMENTED NEUTROPHILS % (AUTO) 74.1 % (42-78); TOTAL CELLS COUNTED % (AUTO) 100 %; WHITE BLOOD COUNT 8.2 10^3/uL (4.0-10.5)
[2018-07-21 14:59] LABS: INTERNATIONAL RATION (INR) 0.89; PROTHROMBIN TIME 12.5 SEC (11.4-15.4)
[2018-07-21 15:02] LABS: ALANINE AMINOTRANSFERASE 38 U/L (21-72); ALBUMIN 3.6 g/dL (3.5-5.0); ALKALINE PHOSPHATASE 101 U/L (38-126); ANION GAP 9 (5-19); ASPARTATE AMINO TRANSFERASE 41 U/L (17-59); BILIRUBIN,DIRECT 0.3 mg/dL (0.0-0.4); BILIRUBIN,TOTAL 0.3 mg/dL (0.2-1.3); BLOOD UREA NITROGEN 12 mg/dL (7-20); CALCIUM 8.6 mg/dL (8.4-10.2); CARBON DIOXIDE 27 mmol/L (22-30); CHLORIDE 105 mmol/L (98-107); CREATINE KINASE 40 U/L (55-170); GLUCOSE 80 mg/dL (75-110); POTASSIUM 4.9 mmol/L (3.6-5.0); SODIUM 141.1 mmol/L (137-145); TOTAL PROTEIN 6.9 g/dL (6.3-8.2)
--- NOTE | 2018-07-21 15:07 | RADIOLOGY REPORT (SQ) ---
EXAM DESCRIPTION: CHEST 2 VIEWS COMPLETED DATE/TIME: 07/21/2018 2:40 pm REASON FOR STUDY: sundar, adolfo COMPARISON: 07/16/2017 EXAM PARAMETERS: NUMBER OF VIEWS: two views TECHNIQUE: Digital Frontal and Lateral radiographic views of the chest acquired. RADIATION DOSE: NA LIMITATIONS: none FINDINGS: LUNGS AND PLEURA: No opacities, masses or pneumothorax. No pleural effusion. MEDIASTINUM AND HILAR STRUCTURES: No masses or contour abnormalities. HEART AND VASCULAR STRUCTURES: Heart normal size. No evidence for failure. BONES: No acute findings. HARDWARE: Sternotomy wires. Graft markers. OTHER: No other significant finding. IMPRESSION: NO ACUTE RADIOGRAPHIC FINDING IN THE CHEST. TECHNICAL DOCUMENTATION: JOB ID: [id number] [employer]- All Rights Reserved Reading location - IP/workstation name: [email or web address]
[2018-07-21 15:12] LABS: CREATINE KINASE MB 0.55 ng/mL (<4.55); NT PRO BNP 175 pg/mL (5-900)
[2018-07-21 15:15] LABS: TROPONIN I < 0.012 ng/mL
[2018-07-21] MEDS ORDERED: ASPIRIN 325 MG TABLET PO ONE (15:33)
--- NOTE | 2018-07-21 15:37 | ER Document Report ---
ED General - General Chief Complaint: Chest Pain Stated Complaint: CHEST PAIN Time Seen by Provider: 07/21/18 13:19 Mode of Arrival: Wheelchair TRAVEL OUTSIDE OF THE [place] IN LAST 30 DAYS: No - HPI Notes: 58-year-old male with a history of coronary artery disease and CABG at [place] in the end of April presents with chest pain for the past week. He states his CABG was complicated by pleural effusions requiring chest tube and staph infection. He has been having right-sided chest pain that is reproducible with palpation for the past week. He states when pain becomes severe he vomits. He denies any change with deep breath or movement. No exertional pain or pain with lying flat. He developed pain under his left breast today associated with diaphoresis , nausea, and shortness of breath. Also reports mild increased bilateral leg swelling. states that he is "losing his color." Denies fever, but had fevers a few weeks ago with possible C. difficile. Those symptoms have resolved. He is no longer on Plavix and did not take aspirin today. - Related Data Allergies/Adverse Reactions: lisinopril Allergy (Verified 07/21/18 13:18) Penicillins Allergy (Verified 07/21/18 12:54) statins Allergy (Uncoded 07/21/18 12:54) Past Medical History - General Information source: Patient - Social History Smoking Status: Never Smoker Frequency of alcohol use: weekly Drug Abuse: None Family History: CAD Patient has suicidal ideation: No Patient has homicidal ideation: No - Past Medical History Cardiac Medical History: Reports: Hx Heart Attack, Hx Hypertension Renal/ Medical History: Denies: Hx Peritoneal Dialysis Psychiatric Medical History: Denies: Hx Depression Past Surgical History: Reports: Hx Abdominal Surgery - gastric bypass, Hx Cardiac Catheterization - stent x4, Hx Cardiac Surgery - May 05 at [place], Hx Gastric Bypass Surgery Review of Systems - Review of Systems Notes: Constitutional: Negative for fever. HENT: Negative for sore throat. Eyes: Negative for visual changes. Cardiovascular: Positive for chest pain and peripheral edema Respiratory: Positive for shortness of breath. Negative for cough Gastrointestinal: Negative for abdominal pain, and diarrhea. Positive for nausea and vomiting Genitourinary: Negative for dysuria. Musculoskeletal: Negative for back pain. Skin: Negative for rash. Neurological: Negative for headaches, weakness or numbness. 10 point ROS negative except as marked above and in HPI. Physical Exam - Vital signs Vitals: Temp Pulse Resp BP 98.0 F 74 16 140/94 H 07/21/18 13:07 07/21/18 13:07 07/21/18 13:07 07/21/18 13:07 - Notes Notes: PHYSICAL EXAMINATION: GENERAL: Well-appearing, well-nourished and in no acute distress. HEAD: Atraumatic, normocephalic. EYES: Pupils equal round and reactive to light, extraocular movements intact, conjunctiva are normal. ENT: nares patent, oropharynx clear without exudates. Moist mucous membranes. NECK: Normal range of motion, supple without lymphadenopathy LUNGS: Breath sounds clear to auscultation bilaterally and equal. No wheezes rales or rhonchi. HEART: Regular rate and rhythm, mild right chest wall tenderness, systolic murmur appreciated ABDOMEN: Soft, nontender, normoactive bowel sounds. No guarding, no rebound. No masses appreciated. EXTREMITIES: Normal range of motion, 1+ pitting edema bilateral ankles and feet. No cyanosis. NEUROLOGICAL: Cranial nerves grossly intact. Normal speech, normal gait. Normal sensory and motor exams. PSYCH: Normal mood, normal affect. SKIN: Warm, Dry, normal turgor, no rashes or lesions noted. Course - Re-evaluation Re-evalutation: 07/21/18 19:[address] is negative pulmonary embolism but shows possible infected pneumatocele on the left. Had 2 chest tubes on left in May after CABG. Will dw CV surgery at [place] for management 07/21/18 19:[address] Morel, cardiology at [place] and accepted pt in transfer. No current fever or leukocytosis to suggest emergent need for antibiotics. Will likely need drainage under IR for further evaluation. pt states recent test for C dif was negative. - Vital Signs Vital signs: Temp Pulse Resp BP Pulse Ox 98.0 F 74 14 132/85 H 98 07/21/18 18:56 07/21/18 13:07 07/21/18 18:26 07/21/18 18:26 07/21/18 18:26 - Laboratory Result Diagrams: 07/21/18 14:20 07/21/18 14:20 Laboratory results interpreted by me: 09/06/18 09/06/18 09/06/18 14:20 14:20 14:20 RBC 4.16 L Hgb 12.1 L Hct 36.8 L RDW 17.0 H D-Dimer 1.18 H Creatine Kinase 40 L Discharge - Discharge Clinical Impression: Pneumatocele of lung Condition: Stable Disposition: [place] Referrals: HILTON LEWIS FNP [Primary Care Provider] - Follow up as needed
[2018-07-21] MEDS ORDERED: ONDANSETRON HCL INJ/PF 4 MG/2 ML SDV IV ONE (16:40)
--- NOTE | 2018-07-21 18:26 | RADIOLOGY REPORT (SQ) ---
EXAM DESCRIPTION: CTA CHEST COMPLETED DATE/TIME: 07/21/2018 6:12 pm REASON FOR STUDY: cp, sob, elevated d dimer COMPARISON: Chest x-ray 07/21/2018 TECHNIQUE: CT scan of the chest performed using helical scanning technique with dynamic intravenous contrast injection. Images reviewed with lung, soft tissue and bone windows. Reconstructed coronal and sagittal MPR images reviewed. Additional 3 dimensional post-processing performed to develop Maximal Intensity Projection images (TX P). All images stored on PACS. All CT scanners at this facility use dose modulation, iterative reconstruction, and/or weight based d osing when appropriate to reduce radiation dose to as low as reasonably achievable (ALARA). [facility]: Dose Right [facility]: CareDose [facility]: Dose Right [facility]: Teradose 4D [facility]: Ensighten CONTRAST TYPE AND DOSE: contrast/concentration: Isovue 350.00 mg/ml; Total Contrast Delivered: 82.0 ml; Total Saline Delivered: 90.0 ml Contrast bolus optimized for the pulmonary arteries. Not diagnostic for the aorta. RENAL FUNCTION: BUN 12 creatinine 0.8 RADIATION DOSE: CT Rad equipment meets quality standard of care and radiation dose reduction techniq ues were employed. CTDIvol: 24.8 - 27.8 mGy. DLP: 1025 mGy-cm. . LIMITATIONS: None. FINDINGS: LUNGS AND PLEURA: There is a 2 x 5 cm area in the posterior left lower lobe in the posteri or costophrenic sulcus that contains an air-fluid level. AORTA AND GREAT VESSELS: No aneurysm. Contrast bolus not optimized for the aorta. HEART: No pericardial effusion. Moderate to marked coronary artery calcifications. PULMONARY ARTERIES: No emboli visualized in the main pulmonary arteries or the segmental branches. HILAR AND MEDIASTINAL STRUCTURES: No identified masses or abnormal nodes. HARDWARE: Sternotomy wires. UPPER ABDOMEN: No significant findings. Limited exam. THYROID AND OTHER SOFT TISSUES: No masses. No adenopathy. BONES: No acute or significant finding. 3D MIPS: Confirm above findings. OTHER: No other significant finding. IMPRESSION: 1. There is no evidence of pulmonary emboli. 2. There is an air-fluid level in the posterior costophrenic sulcus on the left. Possible infected pneumatocoele. COMMENT: Quality ID # [id number]: Final reports with documentation of one or more dose reduction techniques (e.g., Automated exposure control, adjustment of the mA and/or kV according to patient size, use of iterative reconstruction technique) TECHNICAL DOCUMENTATION: JOB ID: [id number] [email or web address]- All Rights Reserved Reading location - IP/workstation name: [email or web address]
--- NOTE | 2018-07-21 18:42 | EKG REPORT ---
SEVERITY:- BORDERLINE ECG - SINUS RHYTHM BORDERLINE LEFT AXIS DEVIATION BORDERLINE T ABNORMALITIES, ANT-LAT LEADS : Confirmed by: Raj Oquendo MD 21-Jul-2018 18:42:08
[2018-07-21 20:29] VITALS: BP 135/76
== END 2018-07-21 20:30 | disposition short-term general hospital (02) ==
LOC: ER 12:53
DX: J98.4 Other disorders of lung (principal); R07.9 Chest pain, unspecified; R11.2 Nausea with vomiting, unspecified; R61 Generalized hyperhidrosis; R60.0 Localized edema; R06.02 Shortness of breath; I10 Essential (primary) hypertension; I25.2 Old myocardial infarction; I25.10 Atherosclerotic heart disease of native coronary artery without angina pectoris; Z95.1 Presence of aortocoronary bypass graft; Z88.8 Allergy status to other drugs, medicaments and biological substances; Z88.0 Allergy status to penicillin; Z98.84 Bariatric surgery status; Z95.5 Presence of coronary angioplasty implant and graft
CPT/HCPCS: 93005; 99285; 96374; 36415; 82553; 82550; 83735; 85025; 85610; 85730; 80053; 84484; 85379; 83880; 71046; 71275; 93010; J2405

== ENCOUNTER 2019-01-03 11:28 | Inpatient (IN) | payer BC ==
[2019-01-03] MEDS ORDERED: PANTOPRAZOLE SODIUM 40 MG VIAL IV ONE (12:01)
[2019-01-03] MEDS ORDERED: ONDANSETRON HCL INJ/PF 4 MG/2 ML SDV IV ONE (12:02)
[2019-01-03] MEDS ORDERED: RINGERS SOLUTION,LACTATED 1,000 ML IV ONE (12:04)
--- NOTE | 2019-01-03 12:04 | ER Document Report ---
ED Medical Screen (RME) - General Chief Complaint: Nausea/Vomiting Stated Complaint: VOMITING, BLOOD IN STOOL Time Seen by Provider: 01/03/19 11:48 Primary Care Provider: HILTON LEWIS FNP [Primary Care Provider] - Follow up as needed Mode of Arrival: Wheelchair Information source: Patient, Relative Notes: 58-year-old male with history of gastric bypass presents with complaints of hemoptysis and bloody stools that started yesterday. Patient reports multiple episodes of vomiting blood yesterday. He has not vomited any blood today but states that he filled the toilet bowl with blood just prior to arrival. Patient denies history of prior similar symptoms. He does admit to drinking 2-3 beers daily. No known history of varices. I have greeted and performed a rapid initial assessment of this patient. A comprehensive ED assessment and evaluation of the patient, analysis of test results and completion of medical decision making process we will be contacted by additional ED providers. PHYSICAL EXAMINATION: Vital signs reviewed GENERAL: Ill-appearing LUNGS: No respiratory distress Musculoskeletal: Normal range of motion NEUROLOGICAL: Normal speech, PSYCH: Normal mood, normal affect. SKIN: Warm, Dry, normal turgor, no rashes or lesions noted. TRAVEL OUTSIDE OF THE [place] IN LAST 30 DAYS: No - HPI Onset: Yesterday Quality of pain: Achy Severity: Mild Associated Symptoms: Diarrhea, Nausea, Vomiting Exacerbated by: Denies Relieved by: Denies Similar symptoms previously: No Recently seen / treated by doctor: No - Related Data Smoking: Non-smoker Frequency of alcohol use: Occasional Drug Abuse: None Allergies/Adverse Reactions: lisinopril Allergy (Verified 01/03/19 12:01) Penicillins Allergy (Verified 01/03/19 12:01) statins Allergy (Uncoded 01/03/19 12:01) Past Medical History - Social History Frequency of alcohol use: Heavy Drug Abuse: None - Past Medical History Cardiac Medical History: Reports: Hx Heart Attack, Hx Hypertension Renal/ Medical History: Denies: Hx Peritoneal Dialysis GI Medical History: Reports: Hx Gastroesophageal Reflux Disease Psychiatric Medical History: Denies: Hx Depression Past Surgical History: Reports: Hx Abdominal Surgery - gastric bypass, Hx Cardiac Catheterization - stent x4, Hx Cardiac Surgery - May 05 at [place], Hx Gastric Bypass Surgery, Hx Orthopedic Surgery - right rotator cuff, right hip replacment Physical Exam - Vital signs Vitals: Temp Pulse Resp BP Pulse Ox 97.7 F 69 16 120/82 100 01/03/19 11:36 01/03/19 11:36 01/03/19 11:36 01/03/19 11:36 01/03/19 11:36 Course - Vital Signs Vital signs: Temp Pulse Resp BP Pulse Ox 97.7 F 69 16 120/82 100 01/03/19 11:36 01/03/19 11:36 01/03/19 11:36 01/03/19 11:36 01/03/19 11:36 Doctor's Discharge - Discharge Referrals: HILTON LEWIS FNP [Primary Care Provider] - Follow up as needed
[2019-01-03 12:47] LABS: ABSOLUTE EOSINOPHILS # (AUTO) 0.1 10^3/uL (0.0-0.6); ABSOLUTE LYMPHOCYTES (AUTO) 1.1 10^3/uL (0.5-4.7); ABSOLUTE MONOCYTES (AUTO) 0.7 10^3/uL (0.1-1.4); ABSOLUTE NEUT (AUTO) 5.7 10^3/uL (1.7-8.2); BASOPHILS % (AUTO) 0.6 % (0-2); EOSINOPHILS % (AUTO) 1.1 % (0-6); HEMATOCRIT 30.9 % (37.9-51.0); HEMOGLOBIN 10.7 g/dL (13.5-17.0); LYMPHOCYTES % (AUTO) 14.4 % (13-45); MEAN CORPUSCULAR HEMOGLOBIN 31.8 pg (27.0-33.4); MEAN CORPUSCULAR HGB CONC 34.5 g/dL (32.0-36.0); MEAN CORPUSCULAR VOLUME 92 fl (80-97); MONOCYTES % (AUTO) 8.8 % (3-13); PLATELET COUNT 245 10^3/uL (150-450); RED BLOOD COUNT 3.36 10^6/uL (4.35-5.55); RED CELL DISTRIBUTION WIDTH 13.8 % (11.5-14.0); SEGMENTED NEUTROPHILS % (AUTO) 75.1 % (42-78); TOTAL CELLS COUNTED % (AUTO) 100 %; WHITE BLOOD COUNT 7.6 10^3/uL (4.0-10.5)
[2019-01-03 12:58] LABS: INTERNATIONAL RATION (INR) 0.95; PARTIAL THROMBOPLASTIN TIME 28.7 SEC (23.5-35.8); PROTHROMBIN TIME 13.2 SEC (11.4-15.4)
[2019-01-03] MEDS ORDERED: PANTOPRAZOLE SODIUM 40 MG VIAL IV PRN (13:07)
[2019-01-03 13:16] LABS: ALANINE AMINOTRANSFERASE 27 U/L (21-72); ALBUMIN 3.6 g/dL (3.5-5.0); ALKALINE PHOSPHATASE 68 U/L (38-126); ANION GAP 7 (5-19); ASPARTATE AMINO TRANSFERASE 27 U/L (17-59); BILIRUBIN,DIRECT 0.2 mg/dL (0.0-0.4); BILIRUBIN,TOTAL 0.4 mg/dL (0.2-1.3); BLOOD UREA NITROGEN 23 mg/dL (7-20); CALCIUM 8.6 mg/dL (8.4-10.2); CARBON DIOXIDE 27 mmol/L (22-30); CHLORIDE 105 mmol/L (98-107); GLUCOSE 122 mg/dL (75-110); POTASSIUM 4.4 mmol/L (3.6-5.0); SODIUM 139.1 mmol/L (137-145)
--- NOTE | 2019-01-03 14:27 | ER Document Report ---
ED GI/ - General Chief Complaint: Nausea/Vomiting Stated Complaint: VOMITING, BLOOD IN STOOL Time Seen by Provider: 01/03/19 11:48 Primary Care Provider: HILTON LEWIS FNP [Primary Care Provider] - Follow up as needed Mode of Arrival: Wheelchair Notes: Patient started vomiting blood yesterday afternoon at about 5 PM. When he vomited, it was all blood, no food. He vomited blood 4 more times yesterday evening and has not vomited anymore since then. However, last evening, patient passed some blood rectally and then again this morning, he is done the same thing, past your blood per rectum. Denies any abdominal pains. Has never had any ulcers or bleeding GI disorders in the past. Takes a baby aspirin daily but no other anticoagulation. History of gastric bypass about 9 years ago. CABG in April,. TRAVEL OUTSIDE OF THE [place] IN LAST 30 DAYS: No - Related Data Allergies/Adverse Reactions: lisinopril Allergy (Verified 01/03/19 12:01) Penicillins Allergy (Verified 01/03/19 12:01) statins Allergy (Uncoded 01/03/19 12:01) Past Medical History - General Information source: Patient, Relative - Social History Smoking Status: Never Smoker Frequency of alcohol use: Heavy Drug Abuse: None Family History: Reviewed & Not Pertinent, CAD Patient has suicidal ideation: No Patient has homicidal ideation: No - Past Medical History Cardiac Medical History: Reports: Hx Heart Attack, Hx Hypertension GI Medical History: Reports: Hx Gastroesophageal Reflux Disease Past Surgical History: Reports: Hx Abdominal Surgery - gastric bypass, Hx Cardiac Catheterization - stent x4, Hx Cardiac Surgery - May 05 at [place], Hx Gastric Bypass Surgery, Hx Orthopedic Surgery - right rotator cuff, right hip replacment Review of Systems - Review of Systems Notes: REVIEW OF SYSTEMS: CONSTITUTIONAL : Denies fever. EENT: Denies eye, ear, nose or mouth or throat pain or other symptoms. CARDIOVASCULAR: Denies chest pain. RESPIRATORY: Denies cough, chest congestion, or shortness of breath. GASTROINTESTINAL: See HPI. GENITOURINARY: Denies difficulty or painful urinating, urinary frequency, blood in urine. MUSCULOSKELETAL: Denies back or neck pain. Denies joint pain or swelling. SKIN: Denies rash or skin lesions. NEUROLOGICAL: Denies LOC or altered mental status. Denies headache. Denies sensory loss or motor deficits. ALL OTHER SYSTEMS REVIEWED AND NEGATIVE. Physical Exam - Vital signs Vitals: Temp Pulse Resp BP Pulse Ox 97.7 F 69 16 120/82 100 01/03/19 11:36 01/03/19 11:36 01/03/19 11:36 01/03/19 11:36 01/03/19 11:36 Interpretation: Normal Notes: PHYSICAL EXAMINATION: GENERAL: Well-appearing, in no acute distress. HEAD: Atraumatic, normocephalic. EYES: Pupils equal round and reactive to light, extraocular movements intact. ENT: oropharynx clear without exudates. Moist mucous membranes. NECK: Normal range of motion, supple. LUNGS: Breath sounds clear and equal bilaterally. HEART: Regular rate and rhythm without murmurs. ABDOMEN: Soft, nontender. No guarding or rebound. No masses. Rectal exam had very little material on the glove, but it does have the color of blood. No abnormalities felt. BACK: No tenderness throughout entire back. EXTREMITIES: Normal range of motion without pain. NEUROLOGICAL: Normal speech, normal gait. Normal sensory, motor, and reflex exams. Awake, alert, and oriented x3. Cranial nerves normal. PSYCH: Normal mood, normal affect. SKIN: Warm, dry, no rashes. Course - Re-evaluation Re-evalutation: 01/03/19 15:08 Vital signs remained stable. Patient's hemoglobin is 10.7 and it was 12.1 just 6 months ago. 01/03/19 15:08 Spoke with hospitalist who will be admitting the patient to telemetry. Also spoke with Dr. Lopez, ditch digger customer acquisition manager, and he will be seeing the patient as well. - Vital Signs Vital signs: Temp Pulse Resp BP Pulse Ox 97.7 F 69 15 112/56 L 99 01/03/19 11:36 01/03/19 11:36 01/03/19 14:01 01/03/19 14:01 01/03/19 14:01 01/03/19 14:28 Patient's hemoglobin 0.7 today. When he was here last July,, his hemoglobin was 12.1. - Laboratory Result Diagrams: 01/03/19 12:23 01/03/19 12:23 Laboratory results interpreted by me: 01/03/19 01/03/19 12:23 12:23 RBC 3.36 L Hgb 10.7 L Hct 30.9 L BUN 23 H Glucose 122 H Total Protein 6.0 L Discharge - Discharge Clinical Impression: Gastrointestinal bleeding, Hematemesis, Rectal bleeding Condition: Stable Disposition: ADMITTED INPATIENT Admitting Provider: Hospitalist Unit Admitted: Telemetry Referrals: HILTON LEWIS FNP [Primary Care Provider] - Follow up as needed
--- NOTE | 2019-01-03 16:49 | RADIOLOGY REPORT (SQ) ---
EXAM DESCRIPTION: CHEST SINGLE VIEW COMPLETED DATE/TIME: 01/03/2019 4:41 pm REASON FOR STUDY: preop COMPARISON: 07/21/2018. EXAM PARAMETERS: NUMBER OF VIEWS: One view. TECHNIQUE: Single frontal radiographic view of the chest acquired. RADIATION DOSE: NA LIMITATIONS: None. FINDINGS: LUNGS AND PLEURA: No opacities, masses or pneumothorax. No pleural effusion. MEDIASTINUM AND HILAR STRUCTURES: No masses. Contour normal. HEART AND VASCULAR STRUCTURES: Heart normal in size. Normal vasculature. BONES: No acute findings. HARDWARE: Sternotomy wires. OTHER: No other significant finding. IMPRESSION: NO ACUTE RADIOGRAPHIC FINDING IN THE CHEST. TECHNICAL DOCUMENTATION: JOB ID: [id number] [employer]- All Rights Reserved Reading location - IP/workstation name: [email or web address]
--- NOTE | 2019-01-03 16:56 | PDOC CONSULTATION ---
Consultation Consult Date: 01/03/19 Attending physician:: TABITHA EMMANUEL Consult reason:: hematemesis History of Present Illness Admission Date/PCP: 01/03/19 15:27 JADA STANTON History of Present Illness: TODD ERAZO is a 58 year old male I was called by the ED physician about this patient has a history of possible hematemesis had blood in his vomitus several times but no longer possible has some melena he does have low H/H but the comparison was made on an H/H about 5 months ago patient has a history of gastric bypass so most likely would be an anastomotic ulcer vs Bambi Sung tear due to the fact that patient who have gastric bypass can no longer vomit the fact that he can suggests that a tear at the EG junction patient to be admitted under the Hospitalist service, at this time there is no bed assignment he will need an EGD at some point he will need a PPI drip and be kept NPO Past Medical History Cardiac Medical History: Reports: Myocardial Infarction, Hypertension GI Medical History: Reports: Gastroesophageal Reflux Disease Psychiatric Medical History: Denies: Depression Past Surgical History Past Surgical History: Reports: Cardiac Catheterization - stent x4, Gastric Bypass Surgery, Orthopedic Surgery - right rotator cuff, right hip replacment Social History Smoking Status: Never Smoker Frequency of Alcohol Use: None Hx Recreational Drug Use: No Drugs: None Hx Prescription Drug Abuse: No Family History Family History: Reviewed & Not Pertinent, CAD Parental Family History Reviewed: Yes Children Family History Reviewed: Unknown Sibling(s) Family History Reviewed.: Unknown Medication/Allergy Allergies/Adverse Reactions: lisinopril Allergy (Verified 01/03/19 12:01) Penicillins Allergy (Verified 01/03/19 12:01) statins Allergy (Uncoded 01/03/19 12:01) Review of Systems Constitutional: ABSENT: fever(s), headache(s), night sweats, weakness Eyes: ABSENT: visual disturbances Ears: ABSENT: hearing changes Nose, Mouth, and Throat: ABSENT: mouth pain, sore throat Cardiovascular: ABSENT: edema, orthropnea, palpitations Respiratory: ABSENT: dyspnea, hemoptysis Gastrointestinal: PRESENT: hematemesis, melena, nausea, vomiting. ABSENT: hematochezia Genitourinary: ABSENT: dysuria, hematuria Musculoskeletal: ABSENT: deformity, joint swelling Integumentary: ABSENT: pruritus Neurological: ABSENT: syncope, tingling, tremor(s), vertigo Endocrine: ABSENT: polydipsia, polyphagia, polyuria Hematologic/Lymphatic: ABSENT: easy bruising Physical Exam Vital Signs: Temp Pulse Resp BP Pulse Ox 97.7 F 69 13 114/68 99 01/03/19 11:36 01/03/19 11:36 01/03/19 16:01 01/03/19 16:01 01/03/19 16:01 Intake & Output 01/02/19 01/03/19 01/04/19 06:59 06:59 06:59 Weight 99 kg General appearance: PRESENT: mild distress, well-developed, well-nourished Head exam: PRESENT: atraumatic, normocephalic Eye exam: PRESENT: EOMI, PERRLA. ABSENT: nystagmus, periorbital swelling, scleral icterus Mouth exam: PRESENT: moist, neck supple Throat exam: ABSENT: tonsillar exudate, tonsillogmegaly Respiratory exam: PRESENT: symmetrical, unlabored. ABSENT: tachypnea, wheezes Cardiovascular exam: PRESENT: RRR, +S1, +S2 GI/Abdominal exam: PRESENT: soft. ABSENT: rebound, rigid, tenderness Gentrourinary exam: ABSENT: lesions Extremities exam: ABSENT: joint swelling, pedal edema Neurological exam: PRESENT: oriented to time, oriented to situation, CN II-XII grossly intact Focused psych exam: ABSENT: restlessness Skin exam: PRESENT: normal color. ABSENT: mottled, pallor, urticaria, vesicles Results Laboratory Results: 01/03/19 12:23 01/03/19 12:23 01/03/19 01/03/19 01/03/19 12:23 12:23 12:23 WBC 7.6 RBC 3.36 L Hgb 10.7 L Hct 30.9 L MCV 92 MCH 31.8 MCHC 34.5 RDW 13.8 Plt Count 245 Seg Neutrophils % 75.1 Lymphocytes % 14.4 Monocytes % 8.8 Eosinophils % 1.1 Basophils % 0.6 Absolute Neutrophils 5.7 Absolute Lymphocytes 1.1 Absolute Monocytes 0.7 Absolute Eosinophils 0.1 Absolute Basophils 0.0 Sodium 139.1 Potassium 4.4 Chloride 105 Carbon Dioxide 27 Anion Gap 7 BUN 23 H Creatinine 0.89 Est GFR ( Amer) > 60 Est GFR (Non-Af Amer) > 60 Glucose 122 H Calcium 8.6 Total Bilirubin 0.4 AST 27 ALT 27 Alkaline Phosphatase 68 Total Protein 6.0 L Albumin 3.6 Blood Type O NEGATIVE Antibody Screen NEGATIVE Assessment & Plan - Diagnosis (1) Hematemesis Plan: ? possible Bambi Sung tear vs possible anastomotic ulcer given the fact that he has a gastric bypass he will need an EGD Risks, benefits and alternatives are discussed with the patient in detail patient to have serial H/H transfuse as necessary patient to be on a PPI drip will schedule patient in OR with Propofol sedation will need to expedite his room assignment - Time Time Spent: 50 to 70 Minutes
[2019-01-03] MEDS ORDERED: PROMETHAZINE HCL INJ 25 MG/1 ML VIAL IV PRN (17:05)
[2019-01-03] MEDS ORDERED: DEXTROSE 50%-WATER 25 GM/50 ML DISP.SYRIN IV PRN ×2 (17:05)
[2019-01-03] MEDS ORDERED: ACETAMINOPHEN 325 MG TABLET PO PRN (17:05)
[2019-01-03] MEDS ORDERED: GLUCAGON,HUMAN RECOMB 1 MG INJ SUBCUT PRN (17:05)
[2019-01-03] MEDS ORDERED: NORMAL SALINE 1000 ML 1,000 ML IV PRN (17:05)
[2019-01-03] MEDS ORDERED: ONDANSETRON HCL INJ/PF 4 MG/2 ML SDV IV PRN (17:05)
[2019-01-03] MEDS ORDERED: DEXTROSE 40% GEL 15 GM TUBE PO PRN ×2 (17:05)
[2019-01-03] MEDS ORDERED: ACETAMINOPHEN 650 MG SUPP.RECT PR PRN (17:05)
[2019-01-03] MEDS ORDERED: MORPHINE SULFATE 10 MG/ML INJ IV PRN (17:15)
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
[2019-01-03 19:40] LABS: HEMATOCRIT 27.2 % (37.9-51.0); HEMOGLOBIN 9.2 g/dL (13.5-17.0); MEAN CORPUSCULAR HGB CONC 33.8 g/dL (32.0-36.0); MEAN CORPUSCULAR VOLUME 92 fl (80-97); PLATELET COUNT 204 10^3/uL (150-450); RED BLOOD COUNT 2.97 10^6/uL (4.35-5.55); RED CELL DISTRIBUTION WIDTH 13.7 % (11.5-14.0); WHITE BLOOD COUNT 6.1 10^3/uL (4.0-10.5)
[2019-01-03] MEDS: METOPROLOL TARTRATE 25 MG TABLET PO SCH (22:57)
[2019-01-04 01:03] LABS: HEMATOCRIT 26.7 % (37.9-51.0); HEMOGLOBIN 9.1 g/dL (13.5-17.0); MEAN CORPUSCULAR HEMOGLOBIN 31.3 pg (27.0-33.4); MEAN CORPUSCULAR HGB CONC 34.2 g/dL (32.0-36.0); MEAN CORPUSCULAR VOLUME 92 fl (80-97); PLATELET COUNT 176 10^3/uL (150-450); RED BLOOD COUNT 2.91 10^6/uL (4.35-5.55); RED CELL DISTRIBUTION WIDTH 14.1 % (11.5-14.0); WHITE BLOOD COUNT 4.6 10^3/uL (4.0-10.5)
--- NOTE | 2019-01-04 07:52 | EKG REPORT ---
SEVERITY:- BORDERLINE ECG - SINUS RHYTHM BORDERLINE T WAVE ABNORMALITIES MINIMAL ST CHANGES IN LATERAL LEADS COMPARED TO 07/21/18 EKG, CLINICAL CORRELATION NEEDED. : Confirmed by: Raj Oquendo MD 04-Jan-2019 07:52:15
[2019-01-04 08:15] LABS: HEMATOCRIT 27.3 % (37.9-51.0); HEMOGLOBIN 9.3 g/dL (13.5-17.0); MEAN CORPUSCULAR HEMOGLOBIN 31.2 pg (27.0-33.4); MEAN CORPUSCULAR HGB CONC 34.2 g/dL (32.0-36.0); MEAN CORPUSCULAR VOLUME 91 fl (80-97); PLATELET COUNT 169 10^3/uL (150-450); RED BLOOD COUNT 2.99 10^6/uL (4.35-5.55); RED CELL DISTRIBUTION WIDTH 13.9 % (11.5-14.0); WHITE BLOOD COUNT 4.4 10^3/uL (4.0-10.5)
[2019-01-04 08:24] LABS: ANION GAP 5 (5-19); BLOOD UREA NITROGEN 11 mg/dL (7-20); CALCIUM 8.2 mg/dL (8.4-10.2); CARBON DIOXIDE 27 mmol/L (22-30); CHLORIDE 109 mmol/L (98-107); GLUCOSE 88 mg/dL (75-110); POTASSIUM 4.5 mmol/L (3.6-5.0); SODIUM 140.6 mmol/L (137-145)
[2019-01-04] MEDS ORDERED: PROPOFOL INJ 200 MG/20 ML VIAL IV ONE (09:10)
[2019-01-04] MEDS: METOPROLOL TARTRATE 25 MG TABLET PO SCH ×2 (10:33→22:43)
[2019-01-04] MEDS ORDERED: EPINEPHRINE INJ 1 MG/10 ML DISP.SYRIN ONE (10:58)
--- NOTE | 2019-01-04 11:38 | Operative Report ---
Operative Report DATE OF SURGERY: 01/04/19 Operative Report: The risks benefits and alternatives of the procedure explained to the patient in detail and informed consent is obtained.A GIF Olympus video scope was inserted into the patient's mouth and hypopharynx, the esophagus is identified intubated and insufflated, the scope was then advanced through the esophagus stomach and duodenum, retroflexion maneuver is done ,the esophagus stomach and first and second portions of the duodenum examined. PREOPERATIVE DIAGNOSIS: Hematemesis POSTOPERATIVE DIAGNOSIS: Anastomotic ulcer in a patient who is status post gastric bypass. Area was injected with 2 cc of 1-10,000 epinephrine mixture OPERATION: EGD with control of hemorrhage SURGEON: TABITHA EMMANUEL ANESTHESIA: LMAC TISSUE REMOVED OR ALTERED: None. COMPLICATIONS: None. ESTIMATED BLOOD LOSS: As noted above. INTRAOPERATIVE FINDINGS: As noted above. PROCEDURE: Patient tolerated the procedure well. No immediate postprocedure complications are noted. Patient is sent back to his room in good condition. Patient will regular activity level. Resume preprocedure diet. Clears advance as tolerated. We will need follow-up EGD as outpatient to document healing. Avoid anticoagulation for the next week or so PPI
[2019-01-04] MEDS ORDERED: MORPHINE SULFATE 10 MG/ML INJ IV PRN (12:39)
[2019-01-04 13:12] LABS: HEMATOCRIT 26.6 % (37.9-51.0); HEMOGLOBIN 9.1 g/dL (13.5-17.0); MEAN CORPUSCULAR HEMOGLOBIN 31.7 pg (27.0-33.4); MEAN CORPUSCULAR HGB CONC 34.3 g/dL (32.0-36.0); MEAN CORPUSCULAR VOLUME 93 fl (80-97); PLATELET COUNT 168 10^3/uL (150-450); RED BLOOD COUNT 2.88 10^6/uL (4.35-5.55); RED CELL DISTRIBUTION WIDTH 13.5 % (11.5-14.0); WHITE BLOOD COUNT 4.5 10^3/uL (4.0-10.5)
--- NOTE | 2019-01-04 19:30 | PDOC PROGRESS REPORT ---
Subjective Progress Note for:: 01/04/19 Subjective:: Groggy from conscious sedation with endoscopy. He is having back pain Reason For Visit: GASTROINTESTINAL BLEEDING, HEMATEMESIS Physical Exam Vital Signs: Temp Pulse Resp BP Pulse Ox 98.6 F 59 L 13 138/65 H 98 01/04/19 15:36 01/04/19 15:36 01/04/19 15:36 01/04/19 15:36 01/04/19 15:36 Intake & Output 01/03/19 01/04/19 01/05/19 06:59 06:59 06:59 Intake Total 360 580 Balance 360 580 Weight 88.9 kg General appearance: PRESENT: no acute distress, cooperative, well-developed Head exam: PRESENT: normocephalic Eye exam: PRESENT: conjunctiva pale Mouth exam: PRESENT: dry mucosa Respiratory exam: PRESENT: clear to auscultation chandana, symmetrical, unlabored. ABSENT: rales, rhonchi, wheezes Cardiovascular exam: PRESENT: RRR, +S1, +S2 GI/Abdominal exam: PRESENT: normal bowel sounds, soft. ABSENT: distended, tenderness Neurological exam: PRESENT: awake, oriented to person, oriented to place, oriented to time, oriented to situation, CN II-XII grossly intact Psychiatric exam: PRESENT: appropriate affect. ABSENT: agitated, anxious Results Laboratory Results: 01/04/19 12:44 01/04/19 07:25 01/03/19 01/04/19 01/04/19 19:10 00:52 07:25 WBC 6.1 4.6 4.4 RBC 2.97 L 2.91 L 2.99 L Hgb 9.2 L 9.1 L 9.3 L Hct 27.2 L 26.7 L 27.3 L MCV 92 92 91 MCH 31.0 31.3 31.2 MCHC 33.8 34.2 34.2 RDW 13.7 14.1 H 13.9 Plt Count 204 176 169 Sodium Potassium Chloride Carbon Dioxide Anion Gap BUN Creatinine Est GFR ( Amer) Est GFR (Non-Af Amer) Glucose Calcium Magnesium 01/04/19 01/04/19 07:25 12:44 WBC 4.5 RBC 2.88 L Hgb 9.1 L Hct 26.6 L MCV 93 MCH 31.7 MCHC 34.3 RDW 13.5 Plt Count 168 Sodium 140.6 Potassium 4.5 Chloride 109 H Carbon Dioxide 27 Anion Gap 5 BUN 11 Creatinine 0.81 Est GFR ( Amer) > 60 Est GFR (Non-Af Amer) > 60 Glucose 88 Calcium 8.2 L Magnesium 1.9 Impressions: Chest X-Ray 01/03/19 16:10 IMPRESSION: NO ACUTE RADIOGRAPHIC FINDING IN THE CHEST. Assessment & Plan - Diagnosis (1) Hematemesis Qualifiers: Nausea presence: with nausea Qualified Code(s): K92.0 - Hematemesis Is this a current diagnosis for this admission?: Yes Plan: Endoscopy revealed an ulcer. Please see Dr. Umana's report. No more hematemesis. Serial hemoglobins have been steady. Will be discharged on proton pump inhibitor therapy. (2) Gastric ulcer with hemorrhage Qualifiers: Gastric ulcer chronicity: acute Qualified Code(s): K25.0 - Acute gastric ulcer with hemorrhage Is this a current diagnosis for this admission?: Yes Plan: As above. Follow-up endoscopy per gastroenterology. We will hold aspirin therapy for at least several weeks. (3) Coronary artery disease Qualifiers: [place] vs. transplanted heart: [place] heart Associated angina: without angina Is this a current diagnosis for this admission?: Yes Plan: Continue current medications except aspirin as noted above. The patient will call cardiology. He might benefit from a different antiplatelet therapy. (4) GERD (gastroesophageal reflux disease) Qualifiers: Esophagitis presence: without esophagitis Qualified Code(s): K21.9 - Gastro-esophageal reflux disease without esophagitis Is this a current diagnosis for this admission?: Yes Plan: The proton pump inhibitor for his gastric ulcer will also treat his reflux. (5) Status post gastric bypass for obesity Is this a current diagnosis for this admission?: Yes Plan: Started on clear liquids today. Will return to normal diet most likely tomorrow. He should continue with frequent small meals. (6) Chronic back pain greater than 3 months duration Is this a current diagnosis for this admission?: Yes Plan: The patient has a history of back pain. Laying in the hospital bed has not been helpful. He does have intravenous analgesia available. - Time Time Spent with patient: 15-24 minutes Medications reviewed and adjusted accordingly: Yes Anticipated discharge: Home Within: within 24 hours
[2019-01-04] MEDS: PANTOPRAZOLE SODIUM 40 MG VIAL IV SCH (22:42)
[2019-01-05] MEDS: PANTOPRAZOLE SODIUM 40 MG VIAL IV SCH (11:03)
[2019-01-05] MEDS: METOPROLOL TARTRATE 25 MG TABLET PO SCH (11:05)
[2019-01-05 11:49] VITALS: BP 130/64
--- NOTE | 2019-01-05 21:42 | PDOC DISCHARGE SUMMARY ---
General - Admit/Disc Date/PCP Admission Date/Primary Care Provider: 01/03/19 15:27 HILTON LEWIS, [facility] Discharge Date: 01/05/19 - Discharge Diagnosis (1) Hematemesis Is this a current diagnosis for this admission?: Yes Summary: Several bouts of hematemesis prior to the admission. Endoscopy identified an ulcer. During his hospitalization he exhibited no further episodes of hematemesis. (2) Gastric ulcer with hemorrhage Is this a current diagnosis for this admission?: Yes Summary: The patient underwent gastroscopy. An ulcer was identified. Please see gastroenterology procedure note for details. The patient will be discharged on twice daily proton pump inhibitor. He will hold off on aspirin. I did encourage him to call his meat curer to see if an antiplatelet therapy other than aspirin should be utilized since this is his second GI bleed over the last 10 years or so. The patient will follow up with gastroenterology 4-5 weeks and will need a follow-up endoscopy. (3) Coronary artery disease Is this a current diagnosis for this admission?: Yes Summary: The patient has a history of coronary artery disease. We will hold the aspirin for several weeks as described above. If his meat curer chooses to continue aspirin therapy I told the patient to make sure that it is enteric coated. (4) GERD (gastroesophageal reflux disease) Is this a current diagnosis for this admission?: Yes Summary: Patient has a history of gastroesophageal reflux disease. Because of the presence of his ulcer his proton pump inhibitor will be doubled for 30 days. (5) Status post gastric bypass for obesity Is this a current diagnosis for this admission?: Yes Summary: The patient has a history of gastric bypass surgery. He has been stable. It is possible that the ulcer was located at a point of anastomosis. He will continue with his baseline meal pattern after discharge. (6) Chronic back pain greater than 3 months duration Is this a current diagnosis for this admission?: Yes Summary: The patient will continue with his home regimen for pain control. - Additional Information Resuscitation Status: Full Code Discharge Diet: Cardiac Discharge Activity: Activity As Tolerated, Balance Activity w/Rest Prescriptions: Esomeprazole Mag Trihydrate [Nexium] 40 mg PO BID #60 capsule.dr Home Medications: Bacillus Coagulans [Probiotic] 2 tab PO DAILY 01/03/19 Calcium+Magnesium+Zinc 1 tab PO DAILY 01/03/19 Cholecalciferol (Vitamin D3) [Vitamin D3 1000 unit Chewable Tablet] 1,000 unit PO DAILY 01/03/19 Cyanocobalamin (Vitamin B-12) [Vitamin B12] 2,500 mcg PO DAILY 01/03/19 Metoprolol Succinate [Toprol Xl 25 mg Tab.sr] 12.5 mg PO Q12 01/03/19 Pediatric Multivitamin No.42 [Flintstones] 2 tab PO DAILY 01/03/19 Acetaminophen [Tylenol 325 mg Tablet] 650 mg PO Q4HP PRN tablet 01/05/19 Esomeprazole Mag Trihydrate [Nexium] 40 mg PO BID #60 capsule. 01/05/19 Metoprolol Tartrate [Lopressor 25 mg Tablet] 12.5 mg PO Q12 tablet 01/05/19 History of Present Illness Patient complains of: Throwing up blood and passing blood clots with dark blood in his stool. History of Present Illness: TODD ERAZO is a 58 year old male was in his usual state of health until yesterday. [facility] and while there had an abrupt onset of weakness. He denied falling or passing out. When he got home he still did not feel well and proceeded to vomit bright red blood. He had 5-6 episodes of hematemesis. His reports approximately 1/4 cup of blood tinged fluid each episode. Last evening he passed a bowel movement with blood clots and dark red blood. He denies having any pain. He was able to sleep and he did try a light breakfast this morning but approximately 45-60 minutes after breakfast he vomit ed again. There was no evidence of blood in this vomitus. He emergency department physician did speak with Dr. Umana and the patient was referred to the hospitalist service for admission Hospital Course Hospital Course: Patient had an uneventful hospital course. His hemoglobin remained stable. He had no further evidence of hematemesis. Endoscopy was performed and a gastric ulcer was identified. The patient tolerated clear liquids. There is no penny dence of problems through the night and the patient was discharged to home as above. Physical Exam Vital Signs: Temp Pulse Resp BP Pulse Ox 98.4 F 64 17 130/64 H 99 01/05/19 11:45 01/05/19 11:45 01/05/19 11:45 01/05/19 11:45 01/05/19 11:45 Intake & Output 01/04/19 01/05/19 01/06/19 06:59 06:59 06:59 Intake Total 360 1026 Balance 360 1026 Weight 88.9 kg General appearance: PRESENT: no acute distress, cooperative, well-developed Head exam: PRESENT: normocephalic Eye exam: PRESENT: conjunctiva pale Ear exam: PRESENT: normal external ear exam Mouth exam: PRESENT: moist Respiratory exam: PRESENT: clear to auscultation chandana, symmetrical, unlabored. ABSENT: rales, rhonchi, wheezes Cardiovascular exam: PRESENT: RRR, +S1, +S2 GI/Abdominal exam: PRESENT: normal bowel sounds, soft. ABSENT: tenderness Extremities exam: ABSENT: pedal edema Neurological exam: PRESENT: alert, awake, oriented to person, oriented to place, oriented to time, oriented to situation, CN II-XII grossly intact Psychiatric exam: PRESENT: appropriate affect, normal mood. ABSENT: agitated, anxious Focused psych exam: ABSENT: delusional, restlessness Results Laboratory Results: 01/04/19 12:44 01/04/19 07:25 Impressions: Chest X-Ray 01/03/19 16:10 IMPRESSION: NO ACUTE RADIOGRAPHIC FINDING IN THE CHEST. Qualifiers - * PATIENT BEING DISCHARGED WITH ANY OF THE FOLLOWING DIAGNOSIS: No Plan Discharge Plan: A note was provided for the patient to confirm his hospitalization as well as confirming his ability to return to work. Time Spent: Less than 30 Minutes
== END 2019-01-05 12:07 | disposition home or self-care (01) | DRG 379 ==
LOC: ER 11:28 → EH 15:27 → 4N 17:55
PROVIDERS: ADMIT Internal Medicine; ATTEND Internal Medicine
PROC: 3E0G8GC Introduction of Other Therapeutic Substance into Upper GI, Via Natural or Artificial Opening Endoscopic (ICD-10-PCS; 2019-01-04)
PROC: 0W3P8ZZ Control Bleeding in Gastrointestinal Tract, Via Natural or Artificial Opening Endoscopic (ICD-10-PCS; principal; 2019-01-04 11:00)
DX: K28.0 Acute gastrojejunal ulcer with hemorrhage (principal); I10 Essential (primary) hypertension; M19.90 Unspecified osteoarthritis, unspecified site; K21.9 Gastro-esophageal reflux disease without esophagitis; M54.9 Dorsalgia, unspecified; I25.2 Old myocardial infarction; Z98.84 Bariatric surgery status; Z95.1 Presence of aortocoronary bypass graft; Z96.641 Presence of right artificial hip joint; Z88.0 Allergy status to penicillin; Z88.8 Allergy status to other drugs, medicaments and biological substances
CPT/HCPCS: 36415; 45381; 71045; 731; 80048; 80053; 83735; 85025; 85027; 85610; 85730; 86850; 86900; 86901; 93005; 93010; 96361; 96374; 96375; 99285; J0171; J2270; J2405; J2704; J3490; J7030; J7120; S0164